=== PATIENT | female | born 1945 | race Caucasian/White ===

== ENCOUNTER 2017-05-07 19:08 | Emergency (ER) | payer SELFPAY ==
[~2017-05-07] VITALS: Ht 144.8 cm; Wt 59.1 kg
[2017-05-07 19:59] LABS: BASOPHILS # (AUTO) 0.04 K/uL (0.00-0.20); BASOPHILS % (AUTO) 0.4 % (0.0-2.0); EOSINOPHILS # (AUTO) 0.13 K/uL (0.00-0.70); EOSINOPHILS % (AUTO) 1.35 % (1.0-6.0); HEMOGLOBIN 13.4 g/dL (12.0-16.0); LYMPHOCYTES % (AUTO) 20.9 % (22.0-44.0); MEAN CORPUSCULAR HEMOGLOBIN 32.7 pg (26.0-34.0); MEAN CORPUSCULAR HGB CONC 34.4 G/dL (31.0-37.0); MEAN CORPUSCULAR VOLUME 95 fL (80-100); MONOCYTES # (AUTO) 0.1 K/uL (0.1-1.0); MONOCYTES % (AUTO) 1.3 % (2.0-9.0); NEUTROPHILS # (AUTO) 7.1 K/uL (1.8-7.7); NEUTROPHILS % (AUTO) 76.1 % (40.0-70.0); PLATELET COUNT (AUTO) 332 K/uL (150-450); RED CELL DISTRIBUTION WIDTH 14.1 % (11.5-14.5); WHITE BLOOD COUNT (AUTO) 9.4 K/uL (4.5-11.0)
[2017-05-07 20:20] LABS: ANION GAP 19 mmol/L (8-16); CALCIUM, TOTAL 9.2 mg/dL (8.8-10.5); CARBON DIOXIDE 17 mmol/L (22-29); CHLORIDE 102 mmol/L (98-107); CREATININE 0.63 mg/dL (0.60-1.30); GLOMERULAR FILTR. RATE CALC > 60 mL/min (>60); POTASSIUM 3.4 mmol/L (3.5-5.1); SODIUM SERUM 138 mmol/L (136-145); UREA NITROGEN, BLOOD 6 mg/dL (7-18)
[2017-05-07 20:27] LABS: ALANINE AMINOTRANSFERASE 26 U/L (12-78); ALBUMIN 3.7 g/dL (3.4-5.0); ASPARTATE AMINOTRANSFERASE 39 U/L (15-37); BILIRUBIN,TOTAL 0.3 mg/dL (0.1-1.0); TOTAL PROTEIN, SERUM 9.4 g/dL (6.4-8.2)
[2017-05-07] MEDS ORDERED: SODIUM CHLORIDE 0.9% 500 ML IV ONE (21:30)
[2017-05-07] MEDS ORDERED: KETOROLAC TROMETHAMINE 30 MG/ML VIAL IVP ONE (21:30)
[2017-05-07] MEDS ORDERED: IOVERSOL 320 MG/ML 100 ML VIAL ONE (22:59)
[2017-05-07 23:02] LABS: APPEARANCE,URINE TURBID (CLEAR); GLUCOSE, URINE (UA) NEGATIVE (NEGATIVE); KETONES,URINE 15 mg/dL (NEGATIVE); LEUKOCYTE ESTERASE ,URINE LARGE (NEGATIVE); OCCULT BLOOD,URINE SMALL (NEGATIVE); PH,URINE 5.5 (5.0-8.0); PROTEIN,URINE POS 1+ (NEGATIVE)
[2017-05-07 23:03] LABS: ADD UA MICROSCOPIC YES
[2017-05-07 23:06] LABS: SQUAMOUS EPITHELIAL CELL,UR Moderate /LPF (None Seen); WBC,URINE 51-100 /HPF (0-5)
[2017-05-08 01:11] VITALS: BP 154/96
[2017-05-08] MEDS ORDERED: CefTRIAXone 1 GM/DEXTROSE 50 ML IV ONE (01:15)
== END 2017-05-08 02:00 | disposition home or self-care (01) ==
LOC: EMS 19:09 → 5S 05-08 00:40 → UNDOADMIN 05-08 00:40 → EMS 05-08 02:00
DX: N39.0 Urinary tract infection, site not specified (principal); R91.8 Other nonspecific abnormal finding of lung field; R07.89 Other chest pain
CPT/HCPCS: 36415; 71101; 71260; 74176; 80053; 81001; 83690; 84484; 85025; 87077; 87086; 87186; 93005; 96361; 96365; 96375; 99285; J0696; J1885; J7040; Q9967

== ENCOUNTER 2017-05-22 10:24 | Emergency (ER) | payer SELFPAY ==
[~2017-05-22] VITALS: Ht 144.8 cm; Wt 59.1 kg
[2017-05-22] MEDS ORDERED: METO25XL PO (10:56)
[2017-05-22] MEDS ORDERED: MORPHINE SULFATE 4 MG/ML SYRINGE IVP ONE ×2 (11:15→12:30)
[2017-05-22] MEDS ORDERED: ONDANSETRON HCL 4 MG/2 ML VIAL IVP ONE (11:15)
[2017-05-22] MEDS ORDERED: SODIUM CHLORIDE 0.9% 1,000 ML IV ONE (11:15)
[2017-05-22 12:09] LABS: BASOPHILS % (AUTO) 0.3 % (0.0-2.0); EOSINOPHILS % (AUTO) 0.6 % (1.0-6.0); HEMOGLOBIN 13.9 g/dL (12.0-16.0); MEAN CORPUSCULAR HEMOGLOBIN 33.5 pg (26.0-34.0); MEAN CORPUSCULAR HGB CONC 34.8 G/dL (31.0-37.0); MEAN CORPUSCULAR VOLUME 97 fL (80-100); MONOCYTES # (AUTO) 0.3 K/uL (0.1-1.0); MONOCYTES % (AUTO) 3.7 % (2.0-9.0); NEUTROPHILS # (AUTO) 6.9 K/uL (1.8-7.7); NEUTROPHILS % (AUTO) 83.4 % (40.0-70.0); PLATELET COUNT (AUTO) 285 K/uL (150-450); RED BLOOD CELL COUNT(AUTO) 4.14 MIL/uL (4.00-5.20); WHITE BLOOD COUNT (AUTO) 8.2 K/uL (4.5-11.0)
[2017-05-22 12:17] LABS: ANION GAP 13 mmol/L (8-16); CALCIUM, TOTAL 8.8 mg/dL (8.8-10.5); CARBON DIOXIDE 26 mmol/L (22-29); CHLORIDE 98 mmol/L (98-107); CREATININE 0.74 mg/dL (0.60-1.30); GLOMERULAR FILTR. RATE CALC > 60 mL/min (>60); SODIUM SERUM 137 mmol/L (136-145); UREA NITROGEN, BLOOD 7 mg/dL (7-18)
[2017-05-22 12:21] LABS: POTASSIUM 2.5 mmol/L (3.5-5.1)
[2017-05-22] MEDS ORDERED: KETOROLAC TROMETHAMINE 30 MG/ML VIAL IVP ONE (12:30)
[2017-05-22] MEDS ORDERED: POTASSIUM CHLORIDE 20 MEQ ER TABLET PO ONE (12:30)
[2017-05-22] MEDS: POTASSIUM CHL 10 MEQ/WATER 50 ML IV SCH ×2 (12:37→13:25)
[2017-05-22] MEDS ORDERED: METOCLOPRAMIDE HCL 5 MG/ML 2 ML VIAL IVP ONE (13:15)
[2017-05-22 14:30] VITALS: BP 115/71
== END 2017-05-22 15:23 | disposition home or self-care (01) ==
LOC: EMS 10:25
DX: R10.12 Left upper quadrant pain (principal); R11.2 Nausea with vomiting, unspecified; R91.8 Other nonspecific abnormal finding of lung field; R53.1 Weakness
CPT/HCPCS: 36415; 80048; 84132; 85025; 96361; 96374; 96375; 96376; 99285; J1885; J2270; J2405; J2765; J3480; J7030